=== PATIENT | male | born 2000 | race African-American/Black ===

== ENCOUNTER 2022-12-21 17:50 | Emergency (ER) | payer SELFPAY ==
[~2022-12-21] VITALS: Ht 167.6 cm; Wt 81.0 kg
[2022-12-21 18:07] VITALS: BP 128/80
== END 2022-12-21 22:29 | disposition left against medical advice (07) ==
LOC: ER 17:50
DX: M25.561 Pain in right knee (principal); R26.9 Unspecified abnormalities of gait and mobility; G89.11 Acute pain due to trauma; V49.59XA Passenger injured in collision with other motor vehicles in traffic accident, initial encounter; Y93.89 Activity, other specified; Y92.488 Other paved roadways as the place of occurrence of the external cause
CPT/HCPCS: 73560; 99283